=== PATIENT | female | born 1980 | race African-American/Black ===

== ENCOUNTER 2016-10-26 00:13 | Emergency (ER) | payer OTHER ==
[~2016-10-26] VITALS: Ht 160 cm; Wt 93.1 kg
[~2016-10-26 00:13] MED LIST: BENZ100 PO; CYCL-36 PO; DICL50 PO; ZITH250T PO
[2016-10-26 00:22] VITALS: BP 110/76; PULSE 89; RESP 14; TEMP 98.5; O2SAT 99
[2016-10-26] MEDS ORDERED: IBUPROFEN 400 MG TAB PO ONE (00:45)
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
[2016-10-26] MEDS ORDERED: IBUP-232 PO (01:26)
== END 2016-10-26 01:37 | disposition home or self-care (01) ==
LOC: PHED 00:13
DX: M25.522 Pain in left elbow (principal); Z79.899 Other long term (current) drug therapy; Z88.5 Allergy status to narcotic agent
CPT/HCPCS: 73070; 99283